=== PATIENT | female | born 1980 | race American Indian/Alaskan Native ===

== ENCOUNTER 2017-11-17 21:09 | Emergency (ER) | payer MEDICAID ==
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
[2017-11-17 23:45] VITALS: BP 128/78; PULSE 78; RESP 18; TEMP 98; O2SAT 100
== END 2017-11-17 22:18 | disposition home or self-care (01) ==
LOC: H.ER 21:09
DX: H11.32 Conjunctival hemorrhage, left eye (principal)